=== PATIENT | female | born 1975 | race Caucasian/White ===

== ENCOUNTER 2019-07-18 11:25 | Emergency (ER) | payer OTHER ==
[~2019-07-18] VITALS: Ht 172.7 cm; Wt 81.7 kg
[~2019-07-18 11:25] MED LIST: FLEXERIL PO; LISINOPRIL10 MG PO; ULTRAM 50MG TAB50 MG PO
[2019-07-18] MEDS ORDERED: NORVASC 2.5 MG2.5 M1 PO (11:36)
[2019-07-18] MEDS ORDERED: FLEXERIL PO (11:52)
[2019-07-18] MEDS ORDERED: MEDROLDOSEPACK PO (11:52)
[2019-07-18] MEDS ORDERED: NORCO 5-325 TA1 EAC1 PO (11:52)
[2019-07-18 11:59] VITALS: BP 146/96
== END 2019-07-18 12:00 | disposition home or self-care (01) ==
LOC: M.ERS 11:25
DX: M54.5 Low back pain (principal); I10 Essential (primary) hypertension; Z88.1 Allergy status to other antibiotic agents; Z88.8 Allergy status to other drugs, medicaments and biological substances

== ENCOUNTER 2019-11-15 12:24 | Emergency (ER) | payer OTHER ==
[~2019-11-15] VITALS: Ht 172.7 cm; Wt 81.7 kg
[~2019-11-15 12:24] MED LIST changes: +MEDROLDOSEPACK PO; +NORCO 5-325 TA1 EAC1 PO; +NORVASC 2.5 MG2.5 M1 PO
[2019-11-15] MEDS ORDERED: NORCO 5-325 TA1 EAC2 PO (13:43)
[2019-11-15] MEDS ORDERED: MEDROLDOSEPACK PO (13:43)
[2019-11-15 13:53] VITALS: BP 140/82
== END 2019-11-15 13:53 | disposition home or self-care (01) ==
LOC: M.ERS 12:24
DX: M54.42 Lumbago with sciatica, left side (principal); G89.29 Other chronic pain; I10 Essential (primary) hypertension; Z88.1 Allergy status to other antibiotic agents; Z88.8 Allergy status to other drugs, medicaments and biological substances

== ENCOUNTER 2019-12-09 10:41 | Emergency (ER) | payer OTHER ==
[~2019-12-09] VITALS: Ht 172.7 cm; Wt 81.7 kg
[~2019-12-09 10:41] MED LIST changes: +NORCO 5-325 TA1 EAC2 PO
[2019-12-09] MEDS ORDERED: IBUPROFEN 800800 M1 PO (11:31)
[2019-12-09] MEDS ORDERED: NORCO 5-325 TA1 EAC2 PO (11:31)
[2019-12-09] MEDS ORDERED: FLEXERIL PO (11:31)
[2019-12-09 11:46] VITALS: BP 148/78
== END 2019-12-09 11:47 | disposition home or self-care (01) ==
LOC: M.ERS 10:41
DX: M54.5 Low back pain (principal); I10 Essential (primary) hypertension; Z88.1 Allergy status to other antibiotic agents; Z88.8 Allergy status to other drugs, medicaments and biological substances

== ENCOUNTER 2019-12-19 07:40 | Emergency (ER) | payer OTHER ==
[~2019-12-19] VITALS: Ht 172.7 cm; Wt 81.7 kg
[~2019-12-19 07:40] MED LIST changes: +IBUPROFEN 800800 M1 PO
[2019-12-19 07:47] VITALS: BP 156/89
[2019-12-19] MEDS ORDERED: MEDROLDOSEPACK PO (08:45)
[2019-12-19] MEDS ORDERED: NAPROSYN500 MG PO (08:45)
[2019-12-19] MEDS ORDERED: HYDROCODON-ACE1 EAC7 PO (08:45)
== END 2019-12-19 08:57 | disposition home or self-care (01) ==
LOC: M.ERS 07:40
DX: M54.5 Low back pain (principal); I10 Essential (primary) hypertension; Z88.1 Allergy status to other antibiotic agents; Z88.8 Allergy status to other drugs, medicaments and biological substances; Z90.710 Acquired absence of both cervix and uterus

== ENCOUNTER 2020-01-27 07:01 | Emergency (ER) | payer OTHER ==
[~2020-01-27] VITALS: Ht 172.7 cm; Wt 81.7 kg
[~2020-01-27 07:01] MED LIST changes: +HYDROCODON-ACE1 EAC7 PO; +NAPROSYN500 MG PO
[2020-01-27] MEDS ORDERED: NORCO 5-325 TA1 EAC2 PO (07:34)
[2020-01-27] MEDS ORDERED: FLEXERIL PO (07:34)
[2020-01-27] MEDS ORDERED: MEDROLDOSEPACK PO (07:34)
[2020-01-27 07:35] VITALS: BP 140/89
== END 2020-01-27 07:35 | disposition home or self-care (01) ==
LOC: M.ERS 07:01
DX: M54.5 Low back pain (principal); I10 Essential (primary) hypertension; Z90.710 Acquired absence of both cervix and uterus; Z88.4 Allergy status to anesthetic agent; Z88.8 Allergy status to other drugs, medicaments and biological substances

== ENCOUNTER 2020-02-06 07:47 | Emergency (ER) | payer OTHER ==
[~2020-02-06] VITALS: Ht 172.7 cm; Wt 81.7 kg
[2020-02-06] MEDS ORDERED: NORCO 5-325 TA1 EAC2 PO (08:15)
[2020-02-06 08:16] VITALS: BP 148/96
== END 2020-02-06 08:16 | disposition home or self-care (01) ==
LOC: M.ERS 07:47
DX: G89.29 Other chronic pain (principal); M54.5 Low back pain; I10 Essential (primary) hypertension; Z88.8 Allergy status to other drugs, medicaments and biological substances; Z88.1 Allergy status to other antibiotic agents; Z90.710 Acquired absence of both cervix and uterus

== ENCOUNTER 2020-12-31 09:13 | Emergency (ER) | payer OTHER ==
[~2020-12-31] VITALS: Ht 172.7 cm; Wt 81.7 kg
[~2020-12-31 09:13] MED LIST changes: +BACTRIM DS TAB1 EACH PO
[2020-12-31 09:24] VITALS: BP 150/104
[2020-12-31 09:41] LABS: URINE BILIRUBIN NEGATIVE (Negative); URINE BLOOD NEGATIVE (Negative); URINE CLARITY CLEAR; URINE COLOR YELLOW; URINE GLUCOSE-RANDOM NEGATIVE (Negative); URINE KETONES NEGATIVE (Negative); URINE LEUKOCYTES-REFLEX TRACE (Negative); URINE NITRITE-REFLEX NEGATIVE (Negative); URINE PROTEIN NEGATIVE (Negative); URINE UROBILINOGEN 0.2 E.U./dl (0.2-1.0)
[2020-12-31 10:16] LABS: CASTS None Seen /LPF (None Seen); CRYSTALS None Seen /LPF (None Seen); HYALINE CASTS 0-3 Few /LPF (None Seen); MUCUS 0-3 Light strn/LPF (None Seen); SQUAMOUS 4-10 Moderate /LPF (0-3); URINE RBC 0-2 Rare /HPF (0-2); URINE WBC-REFLEX 0-5 Rare /HPF (0-5)
== END 2020-12-31 10:42 | disposition left against medical advice (07) ==
LOC: M.ERS 09:13
PROVIDERS: Emergency Medicine Emergency Medical Services
DX: N39.0 Urinary tract infection, site not specified (principal); M54.50 Low back pain, unspecified; I10 Essential (primary) hypertension; Z53.21 Procedure and treatment not carried out due to patient leaving prior to being seen by health care provider; Z90.710 Acquired absence of both cervix and uterus